=== PATIENT | male | born 1965 | race Caucasian/White ===

== ENCOUNTER 2018-03-04 08:16 | Outpatient (CLI) | payer OTHER, SELFPAY ==
[2018-03-04 09:32] LABS: Anion Gap 5.7 mmol/L (3-11); BUN 20 mg/dL (7-18); CO2 31.3 mmol/L (21.0-32.0); CREATININE 1.04 mg/dL (0.70-1.30); Calcium 8.6 mg/dL (8.5-10.1); Chloride 104 mmol/L (98-107); Cholesterol 224 mg/dL (50-200); Glucose 97 mg/dL (70-100); HDL Cholesterol 56 mg/dL (40-60); LDL CHOLESTEROL 156 mg/dL (<100); Potassium 4.7 mmol/L (3.5-5.1); Sodium 141 mmol/L (136-145); Triglyceride 76 mg/dL (30-150)
[2018-03-07 09:42] LABS: PSA, Screening 1.1 ng/ml (0-3.5)
== END 2018-03-04 08:36 ==
PROVIDERS: PCP Nurse Practitioner Family; Visit Provider Nurse Practitioner Family
DX: Z13.1 Encounter for screening for diabetes mellitus (principal); E78.5 Hyperlipidemia, unspecified; Z12.5 Encounter for screening for malignant neoplasm of prostate
CPT/HCPCS: 36415; 80048; 80061; 83721; 84153

== ENCOUNTER 2018-10-11 00:41 | Outpatient (CLI) | payer OTHER, SELFPAY ==
--- NOTE | 2018-10-11 07:32 | MERGE_ITS ---
*[facility]* *[facility]* [address] [place] [address] Date of study: 10/11/2018 Transthoracic Echocardiography M-mode, complete 2D, complete spectral Doppler, and color Doppler *STUDY CONCLUSIONS* Summary: 1. Left ventricle: The cavity size was normal. Wall thickness was normal. Systolic function was normal. The estimated ejection fraction was 55-60%. Wall motion was normal; there were no regional wall motion abnormalities. 2. Mitral valve: Mild prolapse, involving the anterior leaflet and the posterior leaflet. There was mild to moderate regurgitation directed eccentrically. 3. Left atrium: The atrium was moderately dilated. 4. Right ventricle: The cavity size was normal. Wall thickness was normal. Systolic function was normal. 5. Pulmonary arteries: Pulmonary systolic pressure was within the normal range, in the range of 20mm Hg to 25mm Hg. *PATIENT PRESENTATION* Height: 172.7cm ((68in) ) S/D Pressure: Weight: 74.8kg ((164.7lb) ) BSA: 1.9m^2 Test start time: 07:40 AM. Test stop time: 08:40 AM. PERFORMING Unknown PERFORMING Nv CONSULTING Shannon Martin ORDERING Shannon Martin REFERRING Shannon Martin SIGN ERECTOR Nicolette Conde, RT (R)(CT), [facility] REFERRING Katharina Simeon REFERRING Figueroa Bravo *PROCEDURE DATA* Procedure information: This study was interpreted by [facility]. Pertinent images and digital data are archived for permanent storage and are available for subsequent review. Comparison was made to the study of 02/02/2017. Study status: Routine. Transthoracic echocardiography. M-mode, complete 2D, complete spectral Doppler, and color Doppler. A Transthoracic Echocardiogram was performed. Scanning was performed from the parasternal, apical, subcostal, and suprasternal notch acoustic windows. Images were obtained using an [id number] cardiac ultrasound machine. Image quality was adequate. Study completion: The patient tolerated the procedure well. There were no complications. History: PMH: Assess mitral valve insufficiency i34.0 *CARDIAC ANATOMY* Left ventricle: The cavity size was normal. Wall thickness was normal. Systolic function was normal. The estimated ejection fraction was 55-60%. Wall motion was normal; there were no regional wall motion abnormalities. Diastolic parameters were normal. Aortic valve: Trileaflet; normal thickness leaflets. Mobility was not restricted. Doppler: Transvalvular velocity was within the normal range. There was no stenosis. There was no significant regurgitation. VTI ratio of LVOT to aortic valve: 0.73. Valve area (VTI): 2.6cm^2. Indexed valve area (VTI): 1.4cm^2/m^2. Peak velocity ratio of LVOT to aortic valve: 0.75. Valve area (Vmax): 2.7cm^2. Indexed valve area (Vmax): 1.4cm^2/m^2. Mean velocity ratio of LVOT to aortic valve: 0.67. Valve area (Vmean): 2.4cm^2. Indexed valve area (Vmean): 1.3cm^2/m^2. Mean gradient (S): 3.6mm Hg. Peak gradient (S): 5.4mm Hg. Aorta: Aortic root: The aortic root was normal in size. Ascending aorta: The ascending aorta was normal in size. Mitral valve: Mildly thickened leaflets. Mobility was not restricted. Mild prolapse, involving the anterior leaflet and the posterior leaflet. Doppler: Transvalvular velocity was within the normal range. There was no evidence for stenosis. There was mild to moderate regurgitation directed eccentrically. Valve area by pressure half-time: 4.4cm^2. Indexed valve area by pressure half-time: 2.3cm^2/m^2. Peak gradient (D): 2mm Hg. Left atrium: The atrium was moderately dilated. Right ventricle: The cavity size was normal. Wall thickness was normal. Systolic function was normal. Pulmonic valve: Structurally normal valve. Doppler: Transvalvular velocity was within the normal range. There was no evidence for stenosis. There was no significant regurgitation. Tricuspid valve: Structurally normal valve. Doppler: Transvalvular velocity was within the normal range. There was no evidence for stenosis. There was mild regurgitation. Pulmonary artery: Pulmonary systolic pressure was within the normal range, in the range of 20mm Hg to 25mm Hg. Right atrium: The atrium was normal in size. Pericardium: There was no pericardial effusion. Systemic veins: Inferior vena cava: Well visualized. The vessel was patent and normal in size. The respirophasic diameter changes were in the normal range (greater than or equal to 50%). Baseline ECG: Normal sinus rhythm. Measurements Left ventricle Value 02/02/2017 Reference LV ID, ED, PLAX 5.5 cm 5.2 3.5 - 6.0 LV ID, ES, PLAX 4.0 cm 3.9 2.1 - 4.0 LV PW thickness, ED, PLAX 1.0 cm 0.8 LV end-diastolic volume, 80 ml 61 1-p A2C LV ejection fraction, 1-p 67 % 45 A2C LV end-diastolic volume, 87 ml 78 1-p A4C LV ejection fraction, 1-p 56 % 50 A4C LV e', lateral 0.141 m/sec LV E/e', lateral 5 LV e', medial 0.09 m/sec LV E/e', medial 8 LV e', average 0.116 m/sec LV E/e', average 6 Ventricular septum Value 02/02/2017 Reference IVS thickness, ED, PLAX 0.8 cm 0.9 LVOT Value 02/02/2017 Reference LVOT ID, A-P 2.1 cm 2.1 LVOT area 3.6 cm^2 3.6 LVOT peak velocity, S 0.87 m/sec 0.8 LVOT mean velocity, S 0.63 m/sec LVOT VTI, S 18.3 cm 18.1 LVOT peak gradient, S 3 mm Hg LVOT mean gradient, S 1.7 mm Hg 1.1 Stroke volume (SV), LVOT 65 ml DP Stroke index (SV/bsa), 34 ml/m^2 LVOT DP Aortic valve Value 02/02/2017 Reference Aortic valve peak 1.2 m/sec velocity, S Aortic valve mean 0.93 m/sec velocity, S Aortic valve VTI, S 25.0 cm Aortic mean gradient, S 3.6 mm Hg 2 Aortic peak gradient, S 5.4 mm Hg 4 VTI ratio, LVOT/AV 0.73 0.95 Aortic valve area, VTI 2.6 cm^2 2.8 Velocity ratio, peak, 0.75 LVOT/AV Aortic valve area, peak 2.7 cm^2 3.4 velocity Velocity ratio, mean, 0.67 LVOT/AV Aortic valve area, mean 2.4 cm^2 velocity Aortic valve area/bsa, 1.3 cm^2/m^2 mean velocity Aorta Value 02/02/2017 Reference Aortic root ID, ED 3.1 cm 3.2 Ascending aorta ID, A-P, S 3.4 cm 2.9 Left atrium Value 02/02/2017 Reference LA ID, A-P, ES 3.7 cm LA ID/bsa, A-P 2.0 cm/m^2 <=2.2 LA area, ES, A4C (H) 24.7 cm^2 23 8.8 - 23.4 LA area, ES, A2C 23 cm^2 LA volume/bsa, ES, 1-p A4C 48 ml/m^2 39 LA volume, ES, 2-p 78 ml LA volume/bsa, ES, 2-p 41 ml/m^2 LA/aortic root ratio 1.21 1.28 Mitral valve Value 02/02/2017 Reference Mitral E-wave peak 0.71 m/sec 0.71 velocity Mitral A-wave peak 0.54 m/sec 0.49 velocity Mitral deceleration time 172 ms 150 - 230 Mitral pressure half-time 50 ms 40 Mitral peak gradient, D 2 mm Hg Mitral E/A ratio, peak 1.32 1.43 Mitral valve area, PHT, DP 4.4 cm^2 5.5 Pulmonary veins Value 02/02/2017 Reference Pulmonary vein peak 0.57 m/sec 0.63 velocity, S Pulmonary vein peak 0.44 m/sec 0.38 velocity, D Pulmonary vein velocity 1.29 1.67 ratio, peak, S/D Pulmonary vein A-wave 0.36 m/sec 0.29 reversal peak velocity Pulmonary vein A-wave 130 ms reversal duration Tricuspid valve Value 02/02/2017 Reference Tricuspid regurg peak 2.2 m/sec 2.5 velocity Tricuspid peak RV-RA 19.4 mm Hg 24.2 gradient Right atrium Value 02/02/2017 Reference RA area, ES, A4C 17.3 cm^2 17 8.3 - 19.5 Legend: (L) and (H) alejandra values outside specified reference range. I have personally reviewed the images and have reviewed and edited the reported findings. Electronically signed by John Peterson 10/11/2018 10:01
== END 2018-10-11 01:01 ==
PROVIDERS: PCP Nurse Practitioner Family; Visit Provider Nurse Practitioner Adult Health
DX: I34.0 Nonrheumatic mitral (valve) insufficiency (principal); I51.7 Cardiomegaly
CPT/HCPCS: 93306

== ENCOUNTER 2019-10-17 01:16 | Outpatient (CLI) | payer OTHER, SELFPAY ==
[2019-10-17 08:37] LABS: HCT 48.4 % (40.0-50.0); HGB 16.4 g/dL (13.5-17.5); Mean Corp. HGB Concentration 33.9 g/dL (32.0-36.0); Mean Corpuscular Hemoglobin 30.7 pg (27.0-33.0); Mean Corpuscular Volume 90.5 fL (80-95); Mean Platelet Volume 9.3 fL (8.0-11.0); Platelet Count 239 x1000/uL (130-400); RBC 5.35 m/cumm (4.50-6.00); RBC Distribution Width 12.8 % (11.8-14.1)
[2019-10-17 10:05] LABS: ALT 38 U/L (16-63); AST 11 U/L (15-37); Albumin 3.8 g/dL (3.4-5.0); Alkaline Phosphatase 51 U/L (46-116); Anion Gap 6.6 mmol/L (3-11); BUN 23 mg/dL (7-18); Bilirubin, Total 0.8 mg/dL (0.2-1.0); CO2 29.4 mmol/L (21.0-32.0); CREATININE 1.13 mg/dL (0.70-1.30); Calcium 8.7 mg/dL (8.5-10.1); Calculated LDL 137 mg/dL (<100); Chloride 101 mmol/L (98-107); Cholesterol 216 mg/dL (<200); Ferritin 60 ng/mL (26-388); Glucose 93 mg/dL (74-106); HDL Cholesterol 49 mg/dL (40-60); Potassium 4.4 mmol/L (3.5-5.1); Sodium 137 mmol/L (136-145); Total Protein 7.2 g/dL (6.4-8.2); Triglyceride 152 mg/dL (<150)
[2019-10-18 11:10] LABS: PSA, Screening 1.5 ng/mL (0.0-3.5)
== END 2019-10-17 01:36 ==
PROVIDERS: PCP Family Medicine; Visit Provider Family Medicine
DX: E78.5 Hyperlipidemia, unspecified (principal); I10 Essential (primary) hypertension; Z80.42 Family history of malignant neoplasm of prostate; R79.89 Other specified abnormal findings of blood chemistry; Z12.5 Encounter for screening for malignant neoplasm of prostate
CPT/HCPCS: 36415; 80053; 80061; 84153; 85027; 82728

== ENCOUNTER 2020-07-16 03:48 | Outpatient (CLI) | payer OTHER, SELFPAY ==
[2020-07-16 09:18] LABS: Calculated LDL 113 mg/dL (<100); Cholesterol 205 mg/dL (<200); HDL Cholesterol 47 mg/dL (40-60); Triglyceride 226 mg/dL (<150)
== END 2020-07-16 03:49 | disposition home or self-care (01) ==
LOC: LBO 03:48
PROVIDERS: PCP Family Medicine; Visit Provider Family Medicine
DX: E78.5 Hyperlipidemia, unspecified (principal)
CPT/HCPCS: 36415; 80061

== ENCOUNTER 2020-10-16 02:06 | Outpatient (CLI) | payer OTHER, SELFPAY ==
[2020-10-16 12:47] LABS: Calculated LDL 118 mg/dL (<100); Cholesterol 191 mg/dL (<200); HDL Cholesterol 49 mg/dL (40-60); Triglyceride 121 mg/dL (<150)
== END 2020-10-16 02:07 | disposition home or self-care (01) ==
LOC: LOS 02:06
PROVIDERS: PCP Family Medicine; Visit Provider Emergency Medicine
DX: E78.5 Hyperlipidemia, unspecified (principal)
CPT/HCPCS: 36415; 80061

== ENCOUNTER 2021-03-04 04:14 | Outpatient (CLI) | payer OTHER, SELFPAY ==
[2021-03-04 13:30] LABS: Calculated LDL 195 mg/dL (<100); Cholesterol 271 mg/dL (<200); HDL Cholesterol 47 mg/dL (40-60); Triglyceride 149 mg/dL (<150)
== END 2021-03-04 04:15 | disposition home or self-care (01) ==
LOC: LBO 04:14
PROVIDERS: PCP Family Medicine; Visit Provider Emergency Medicine
DX: E78.5 Hyperlipidemia, unspecified (principal)
CPT/HCPCS: 36415; 80061

== ENCOUNTER 2021-07-22 02:57 | Outpatient (CLI) | payer OTHER, SELFPAY ==
[2021-07-22 09:38] LABS: Calculated LDL 112 mg/dL (<100); Cholesterol 198 mg/dL (<200); HDL Cholesterol 55 mg/dL (40-60); Triglyceride 156 mg/dL (<150)
== END 2021-07-22 02:58 | disposition home or self-care (01) ==
LOC: LBO 02:57
PROVIDERS: PCP Nurse Practitioner Family; Visit Provider Emergency Medicine
DX: E78.5 Hyperlipidemia, unspecified (principal)
CPT/HCPCS: 36415; 80061

== ENCOUNTER 2021-11-11 01:26 | Outpatient (CLI) | payer OTHER, SELFPAY ==
--- OUTSIDE RECORDS SUMMARY | 2021-11-11 01:27 | XMS_ITS | Encounter Summary ---
:1965 Demographics Home Phone Preferred Language Unknown Marital Status Unknown [employer] Affiliation Unknown Race Unknown Ethnic Group Unknown Author Organization [facility] Address [address] [place] [address] Care Team Providers Name Role Phone Unknown, Provider Primary Care Provider Encounter Details Date Type Department Care Team Description 10/17/2019 Lab Requisition [facility] Outr Resulting Lab, Pathology & Laboratory Provider [facility] [address] [place] [address] Social History Tobacco Use Types Packs/Day Years Used Date Never Assessed Sex Assigned at Date Recorded Not on file documented as of this encounter Plan of Treatment Not on filedocumented as of this encounter Procedures Procedure Name Priority Date/Time Associated Comments Diagnosis PSA TOTAL, Routine 10/17/2019 8:23 EDT Results for this DIAGNOSTIC procedure are i n the results section. documented in this encounter Results PSA TOTAL, DIAGNOSTIC (10/17/2019 8:23 EDT) Pathologist Sig nature PSA 1.5 0.0 - 3.5 ng/mL [facility] Specimen Blood - Venous blood (substance) Narrative [facility] - 10/18/2019 10:51 EDT NOTE: Serum PSA concentration should not be in terpreted as absolute evidence for the presence or absence of malignant disease. Assayed on Siemens ADVIA Centaur XPT usi ng chemiluminescent technology.??Values obtained by using different assay methods cannot be used interchangeably. Performing Organization Address City/State/ZIP Code Phon e Number [facility] [address] [place] [address] SERVICES documented in this encounter Visit Diagnoses Not on filedocumented in this encounter Care Teams Professor Of Music Relationship Specialty Start Date End Date Unknown, Provider, PCP - General 11/28/18 documented as of this encounter
[2021-11-11 13:15] LABS: Hemoglobin A1C 5.5 % (<5.7)
[2021-11-11 13:17] LABS: TSH 1.76 uIU/mL (0.36-3.74)
[2021-11-11 23:00] LABS: PSA, Screening 1.5 ng/mL (<=3.5)
== END 2021-11-11 01:27 | disposition home or self-care (01) ==
LOC: LOS 01:26
PROVIDERS: PCP Nurse Practitioner Family; Visit Provider Nurse Practitioner Family
DX: Z13.1 Encounter for screening for diabetes mellitus (principal); Z13.29 Encounter for screening for other suspected endocrine disorder; Z12.5 Encounter for screening for malignant neoplasm of prostate
CPT/HCPCS: 36415; 84153; 83036; 84443

== ENCOUNTER 2022-12-04 02:45 | Outpatient (CLI) | payer OTHER, SELFPAY ==
[2022-12-04 13:09] LABS: CREATININE 1.3 mg/dL (0.70-1.30); Calculated LDL 142 mg/dL (<100); Cholesterol 214 mg/dL (<200); Estimated GFR 64.07 (mL/min/1.73m2); HDL Cholesterol 55 mg/dL (40-60); Triglyceride 87 mg/dL (<150)
== END 2022-12-04 02:46 | disposition home or self-care (01) ==
LOC: LOS 02:45
PROVIDERS: PCP Nurse Practitioner Family; Visit Provider Nurse Practitioner Family
DX: I10 Essential (primary) hypertension (principal); E78.5 Hyperlipidemia, unspecified
CPT/HCPCS: 36415; 80061; 82565; 84132

== ENCOUNTER 2023-11-17 22:50 | Outpatient (REF) | payer OTHER, SELFPAY ==
[2023-11-17 15:14] LABS: CREATININE 1.3 mg/dL (0.70-1.30); Calculated LDL 109 mg/dL (<100); Cholesterol 186 mg/dL (<200); Estimated GFR 63.68 (mL/min/1.73m2); HDL Cholesterol 54 mg/dL (40-60); Potassium 4.1 mmol/L (3.5-5.1); Triglyceride 119 mg/dL (<150)
[2023-11-18 10:52] LABS: PSA, Screening 2.1 ng/mL (<=3.5)
== END 2023-11-17 22:51 | disposition home or self-care (01) ==
LOC: LBN 22:50
PROVIDERS: PCP Nurse Practitioner Family; Visit Provider Nurse Practitioner Family
DX: I10 Essential (primary) hypertension (principal); E78.5 Hyperlipidemia, unspecified; Z12.5 Encounter for screening for malignant neoplasm of prostate
CPT/HCPCS: 80061; 84153; 82565; 84132

== ENCOUNTER 2025-02-01 08:32 | Outpatient (CLI) | payer OTHER, SELFPAY ==
[2025-02-01 14:23] LABS: Anion Gap 8.2 mmol/L (3-11); BUN 18 mg/dL (7-18); CO2 29.8 mmol/L (21.0-32.0); Calcium 8.5 mg/dL (8.5-10.1); Calculated LDL 105 mg/dL (<100); Chloride 100 mmol/L (98-107); Cholesterol 171 mg/dL (<200); Estimated GFR 69.66 (mL/min/1.73m2); Glucose 94 mg/dL (74-106); HDL Cholesterol 50 mg/dL (>or=40); Potassium 3.7 mmol/L (3.5-5.1); Sodium 138 mmol/L (136-145); Triglyceride 82 mg/dL (<150)
[2025-02-01 14:28] LABS: Hemoglobin A1C 5.5 % (<5.7)
[2025-02-02 10:31] LABS: PSA, Screening 1.8 ng/mL (<=3.5)
== END 2025-02-01 08:33 | disposition home or self-care (01) ==
LOC: LOS 08:32
PROVIDERS: PCP Nurse Practitioner Family; Visit Provider Nurse Practitioner Family
DX: Z13.1 Encounter for screening for diabetes mellitus (principal); Z12.5 Encounter for screening for malignant neoplasm of prostate; I10 Essential (primary) hypertension; Z13.220 Encounter for screening for lipoid disorders; E78.5 Hyperlipidemia, unspecified
CPT/HCPCS: 36415; 80048; 80061; 84153; 83036